=== PATIENT | male | born 1990 | race Caucasian/White ===

== ENCOUNTER 2021-11-04 11:18 | Emergency (ER) | payer BC ==
[2021-11-04 11:54] LABS: HEMOGLOBIN 14.1 gm/dl (14.0-17.5); RED BLOOD COUNT 4.38 M/UL (4.20-5.50)
[2021-11-04 12:25] LABS: BUN/CREATININE RATIO 15 (0-10)
== END 2021-11-04 13:33 | disposition home or self-care (01) ==
LOC: ER1 11:18
PROVIDERS: Preventive Medicine Occupational Medicine
DX: R55 Syncope and collapse (principal)
CPT/HCPCS: 80053; 85025; 86140; 93005; 99284